=== PATIENT | female | born 1955 | race Caucasian/White ===

== ENCOUNTER → 2018-04-19 | Emergency (ER) | payer OTHER ==
[~2018-04-19] VITALS: Ht 162.6 cm; Wt 72.6 kg
[~2018-04-19] MED LIST: KETO10TA2 PO; LOSARTAN POTASS50 MG PO; MEDROLPACK PO; NORFLEX100MG PO
== END | disposition home or self-care (01) ==
LOC: ER 08:32
DX: M62.830 Muscle spasm of back (principal); M54.5 Low back pain